=== PATIENT | male | born 1940 | race Caucasian/White ===

== ENCOUNTER → 2019-07-16 | Outpatient (CLI) | payer MEDICARE ==
[2019-07-16 10:23] LABS: CREATININE 0.8 mg/dL (0.5-1.5)
== END | disposition home or self-care (01) ==
LOC: LAB 09:03
PROVIDERS: ATTEND Surgery Surgical Oncology
DX: K86.89 Other specified diseases of pancreas (principal)
CPT/HCPCS: 36415; 82565; 84520

== ENCOUNTER → 2019-07-19 | Outpatient (CLI) | payer MEDICARE ==
[~2019-07-19] MED LIST: IOHEXOL 350 MG/ML 100ML INFUS..BTL IV ONE
== END | disposition home or self-care (01) ==
LOC: RAH 09:37 → EDUNIT# 10:00
PROVIDERS: ATTEND Surgery Surgical Oncology
DX: K86.89 Other specified diseases of pancreas (principal); I70.90 Unspecified atherosclerosis; Z90.49 Acquired absence of other specified parts of digestive tract
CPT/HCPCS: 74177; Q9967